=== PATIENT | male | born 1990 ===

== ENCOUNTER 2025-05-27 10:20 | Emergency (ER) | payer SELFPAY ==
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
[2025-05-27 10:39] VITALS: BP 125/82; PULSE 71; RESP 16; TEMP 36.9; O2SAT 98; BMI 41.1
--- NOTE | 2025-05-27 11:06 | ECG_ITS ---
Test Reason : chest pain Blood Pressure : */* mmHG Vent. Rate : 55 BPM Atrial Rate : 55 BPM P-R Int : 214 ms QRS Dur : 114 ms QT Int : 430 ms P-R-T Axes : 36 58 15 degrees QTcB Int : 411 ms Sinus bradycardia with 1st degree A-V block Otherwise normal ECG No previous ECGs available Referred By: Devyn Rowan Electronically Signed By: Teodoro Machado
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
[2025-05-27 11:27] LABS: MANUAL DIFF FLAG NO
[2025-05-27 11:30] LABS: Hematocrit 42.0 % (42.0-52.0); Hemoglobin 14.3 g/dl (14.0-18.0); Imm Gran Abs Auto 0.10 X10*3/uL (0.00-0.03); Imm Gran Pct Auto 0.5 % (0.0-0.4); Lymphocytes Absolute Auto 1.3 X10*3/uL (1.2-4.9); Mean Corpuscular HGB Conc 34.0 g/dl (31.0-36.0); Mean Corpuscular Hemoglobin 29.1 pg (27.0-33.0); Mean Corpuscular Volume 85.5 fL (80.0-98.0); NRBC Abs Auto 0.000 X10*3/uL (0.0-0.012); NRBC Pct Auto 0.0 /100WBC (0.0-0.2); Platelet Count 245 X10*3/uL (160-400); Red Blood Count 4.91 X10*6/uL (4.60-5.80); White Blood Count 18.8 X10*3/uL (4.8-10.8)
[2025-05-27 11:45] LABS: Alanine Aminotransferase 15 U/L (0-40); Albumin Level 3.9 g/dL (3.5-5.0); Alkaline Phosphatase 79 U/L (39-117); Anion Gap 9 (12-20); Aspartate Amino Transferase 27 U/L (5-37); Blood Urea Nitrogen 15 mg/dL (9-16); Calcium 8.2 mg/dL (8.4-10.2); Carbon Dioxide 26 mmol/L (22-29); Chloride 109 mmol/L (96-108); Creatinine Clr Calc Pharmacy 178.6; Estimated Glomerular Filt Rate > 60; Lipase 64 U/L (8-78); Potassium 3.1 mmol/L (3.3-5.1); Sodium 141 mmol/L (135-145); Total Protein 6.4 g/dL (6.5-8.0)
[2025-05-27] MEDS: iohexoL 350 MG/ML 100 ML INFUS..BTL IV (11:51)
[2025-05-27 12:30] VITALS: BP 112/80; PULSE 72; RESP 18; O2SAT 99
--- NOTE | 2025-05-27 13:30 | PC.NURSE ---
Attempted multiple calls to [facility] for report, no answer (repeat loop recording stating we are experiencing a high volume ). EMS aware. Paperwork given to EMS, confirmed transfer of imaging/lab work to [facility]. Pt transported via ambulance.
[2025-05-27 14:00] VITALS: BP 132/82; PULSE 76; RESP 16; TEMP 36.9; O2SAT 99
== END 2025-05-27 14:00 | disposition short-term general hospital (02) ==
PROVIDERS: Emergency Provider Emergency Medicine
DX: S36.409A Unspecified injury of unspecified part of small intestine, initial encounter (principal); S99.191A Other physeal fracture of right metatarsal, initial encounter for closed fracture; S92.351A Displaced fracture of fifth metatarsal bone, right foot, initial encounter for closed fracture; V49.49XA Driver injured in collision with other motor vehicles in traffic accident, initial encounter; Y93.9 Activity, unspecified; Y92.411 Interstate highway as the place of occurrence of the external cause; R07.9 Chest pain, unspecified; R00.1 Bradycardia, unspecified; I44.0 Atrioventricular block, first degree; M54.2 Cervicalgia; S09.90XA Unspecified injury of head, initial encounter; M79.642 Pain in left hand; M79.671 Pain in right foot; M21.071 Valgus deformity, not elsewhere classified, right ankle
CPT/HCPCS: 36415; 70450; 71260; 72125; 73130; 73630; 74177; 80053; 80307; 83690; 85025; 86850; 86900; 86901; 93005; 96374; 96375; 99285; J0131; J2270; Q9967

== ENCOUNTER → 2025-05-27 11:05 | Outpatient (BNV) | payer MEDICAID, SELFPAY | PROVIDERS: Emergency Provider Emergency Medicine; Visit Provider Radiology Diagnostic Radiology | DX: Z04.3 Encounter for examination and observation following other accident (principal); M54.2 Cervicalgia; S09.90XA Unspecified injury of head, initial encounter; M79.642 Pain in left hand; S92.351A Displaced fracture of fifth metatarsal bone, right foot, initial encounter for closed fracture; M20.11 Hallux valgus (acquired), right foot; V89.2XXA Person injured in unspecified motor-vehicle accident, traffic, initial encounter | CPT/HCPCS: 70450; 71260; 72125; 73130; 73630; 74177 ==

== ENCOUNTER → 2025-05-27 11:06 | Outpatient (BNV) | payer MEDICAID, SELFPAY | PROVIDERS: Emergency Provider Emergency Medicine; Visit Provider Internal Medicine Cardiovascular Disease | DX: I44.0 Atrioventricular block, first degree (principal); R00.1 Bradycardia, unspecified | CPT/HCPCS: 93010 ==